=== PATIENT | male | born 1990 | race Caucasian/White ===

== ENCOUNTER 2016-09-04 06:07 | Emergency (ER) | payer OTHER ==
[~2016-09-04] VITALS: Ht 172.7 cm; Wt 78.1 kg
[2016-09-04 06:14] VITALS: TEMP 36.5; Ht 172.7 cm; Wt 78.1 kg
[2016-09-04] MEDS ORDERED: ONDANSETRON INJ 2 MG/ML 2 ML VIAL IV STA (06:31)
[2016-09-04] MEDS ORDERED: MULTI-VITAMIN INFUSION INJ 10 ML, THIAMINE HCL INJ 100 MG, FoLIC ACID INJ 1 MG in SODIU... IV STA (06:31)
--- NOTE | 2016-09-04 07:01 | EMERGENCY ROOM VISIT NOTE ---
History First contact with patient: 06:16 Chief Complaint: NAUSEA Stated Complaint: GETTING COLD,DIORDER OF DIGESTIVE Nursing Triage Summary: pt states "I cannot feel my organs". when asked to explain. pt states he only slept 5 minutes and he woke "sweating". pt reports bowel and bladder function normal. pt denies constipation or diarrhea. pt states he ate rice and chicken last evening for supper "I ate alot and feel pressure" pt then demonstrates he put his fingers down his throat to make himself vomit after eating. pt states he was thirsty all night, but did not drink. History of Present Illness The patient is a 25 year old male who presents to the Emergency Room with complaints of nausea and vomiting since this morning. History was somewhat limited as his primary language is Sinhala. He reports he woke up after sleeping for 5 minutes in a sweat and also felt nauseous, so went to the bathroom to make himself vomit. He vomited up his dinner, which was chicken and rice, and reports he had eaten a large amount of this last night. He reports he ate so much he found it somewhat difficult to breathe. He reports feeling chills, did not check his temperature, but then decided to come to the ED. He denies any diarrhea at any point. He reports he was drinking a lot Sunday night but was unable to quantify this. He reports he mainly drinks on the weekend and this will be higher amounts than throughout the week. He reports lately he has just been feeling thirsty but otherwise has been feeling well. Review of Systems See HPI for pertinent positives & negatives. A total of 10 systems reviewed and were otherwise negative. Past Medical/Surgical History Medical Problems: (1) Kidney stone Family History Patient reports no known family medical history. Social History Smoking Status: Current Every Day Smoker Alcohol Use: none Drug Use: none Occupation Status: [employer] student Current/Historical Medications No Active Prescriptions or Reported Meds Allergies Coded Allergies: No Known Allergies (Unverified , 09/04/16) Physical Exam Vital Signs Date Time Temp Pulse Resp B/P Pulse Ox O2 Delivery O2 Flow Rate FiO2 09/04/16 08:17 63 16 116/58 98 Room Air 09/04/16 06:14 36.5 63 20 114/77 98 Room Air Physical Exam GENERAL: Awake, alert, well-appearing, in no acute distress HENT: Normocephalic, atraumatic. Oropharynx unremarkable. EYES: Normal conjunctiva. Sclera non-icteric. NECK: Supple. No nuchal rigidity. FROM. No JVD. RESPIRATORY: Clear to auscultation. CARDIAC: Regular rate, normal rhythm. Extremities warm and well perfused. Pulses equal. ABDOMEN: Soft, non-distended. No tenderness to palpation. No rebound or guarding. No masses. RECTAL: Deferred. MUSCULOSKELETAL: Chest examination reveals no tenderness. The back is symmetrical on inspection without obvious abnormality. There is no CVA tenderness to palpation. No joint edema. LOWER EXTREMITIES: Calves are equal size bilaterally and non-tender. No edema. No discoloration. NEURO: Normal sensorium. No sensory or motor deficits noted. SKIN: No rash or jaundice noted. Medical Decision & Procedures Laboratory Results 09/04/16 06:50 Red Blood Count 4.76, Mean Corpuscular Volume 86.6, Mean Corpuscular Hemoglobin 31.1, Mean Corpuscular Hemoglobin Concent 35.9, Mean Platelet Volume 9.6, Neutrophils (%) (Auto) 50.0, Lymphocytes (%) (Auto) 33.5, Monocytes (%) (Auto) 7.6, Eosinophils (%) (Auto) 7.6, Basophils (%) (Auto) 0.9, Neutrophils # (Auto) 2.68, Lymphocytes # (Auto) 1.80, Monocytes # (Auto) 0.41, Eosinophils # (Auto) 0.41, Basophils # (Auto) 0.05 09/04/16 06:50 Test 09/04/16 06:50 09/04/16 06:57 White Blood Count 5.37 K/uL (4.8-10.8) Red Blood Count 4.76 M/uL (4.7-6.1) Hemoglobin 14.8 g/dL (14.0-18.0) Hematocrit 41.2 % (42-52) Mean Corpuscular Volume 86.6 fL (80-100) Mean Corpuscular Hemoglobin 31.1 pg (25-34) Mean Corpuscular Hemoglobin Concent 35.9 g/dl (32-36) Platelet Count 162 K/uL (130-400) Mean Platelet Volume 9.6 fL (7.4-10.4) Neutrophils (%) (Auto) 50.0 % Lymphocytes (%) (Auto) 33.5 % Monocytes (%) (Auto) 7.6 % Eosinophils (%) (Auto) 7.6 % Basophils (%) (Auto) 0.9 % Neutrophils # (Auto) 2.68 K/uL (1.4-6.5) Lymphocytes # (Auto) 1.80 K/uL (1.2-3.4) Monocytes # (Auto) 0.41 K/uL (0.11-0.59) Eosinophils # (Auto) 0.41 K/uL (0-0.5) Basophils # (Auto) 0.05 K/uL (0-0.2) RDW Standard Deviation 40.0 fL (36.4-46.3) RDW Coefficient of Variation 12.5 % (11.5-14.5) Immature Granulocyte % (Auto) 0.4 % Immature Granulocyte # (Auto) 0.02 K/uL (0.00-0.02) Anion Gap 9.0 mmol/L (3-11) Est Creatinine Clear Calc Drug Dose 99.3 ml/min Estimated GFR () 107.6 Estimated GFR (Non- 92.8 BUN/Creatinine Ratio 13.7 (10-20) Calcium Level 8.5 mg/dl (8.5-10.1) Total Bilirubin 0.7 mg/dl (0.2-1) Aspartate Amino Transf (AST/SGOT) 52 U/L (15-37) Alanine Aminotransferase (ALT/SGPT) 89 U/L (12-78) Alkaline Phosphatase 68 U/L (45-117) Total Protein 6.7 gm/dl (6.4-8.2) Albumin 3.8 gm/dl (3.4-5.0) Globulin 2.9 gm/dl (2.5-4.0) Albumin/Globulin Ratio 1.3 (0.9-2) Influenza Type A Antigen Neg for Influ A (NEG) Influenza Type B Antigen Neg for Influ B (NEG) Bedside Glucose 100 mg/dl (70-99) Medications Administered Medications (Trade) Dose Ordered Sig/Josias Route Start Time Stop Time Status Last Admin Dose Admin Ondansetron HCl 4 mg 4 mg NOW STAT IV 09/04/16 06:31 09/04/16 06:42 DC 09/04/16 07:05 4 MG Sodium Chloride (Nss 1000ml) 1,000 ml @ 999 mls/hr Q1H1M ONCE IV 09/04/16 07:15 09/04/16 08:15 DC 09/04/16 07:05 999 MLS/HR ED Course 6:20: I evaluated the patient in room B3B. A complete history and physical examination were performed. 6:30: I ordered a CBC, CMP, Urine dipstick, Urinalysis, Influenza antigen, 1L of Normal Saline x 1, and 4mg Zofran IV. 7:40: The patient reported feeling better, and wanted to go home. He was sent home in good condition. Medical Decision This is a 25-year-old male who presents with vomiting 1 day. Differential includes foodborne illness, viral gastroenteritis, cholecystitis, gastritis, pancreatitis. He had an IV placed and labs drawn. He was given 4 mg of IV Zofran for nausea and also rehydrated with 1 L normal saline. His labwork was found to be normal, apart from a mild elevation in his LFTs. I explained this could be a reflection of his alcohol use over the weekend. I informed him he should have this checked within the next week again by his PCP. He did not have any other signs of liver disease throughout his stay. He did not have any more nausea or vomiting during his time in the ED. He did request to go home around 8:30, and was discharged in good condition. Impression Primary Impression: Vomiting Departure Information Dispostion Home / Self-Care Condition GOOD Prescriptions No Active Prescriptions or Reported Meds Referrals No Doctor, Assigned (PCP) Patient Instructions My [facility] Resident Tracking Resident Involvement: Resident Care Provided Care Provided: Adult ED
[2016-09-04 07:02] LABS: BASO % 0.9 %; BASO ABS # 0.05 K/uL (0-0.2); COMPLETE YES; EOS % 7.6 %; HEMATOCRIT 41.2 % (42-52); IG% 0.4 %; LYMPH % 33.5 %; MEAN CELL VOLUME 86.6 fL (80-100); MEAN CORPUSCULAR HEMOGLOBIN 31.1 pg (25-34); MEAN CORPUSCULAR HGB CONC 35.9 g/dl (32-36); MEAN PLATELET VOLUME 9.6 fL (7.4-10.4); MONO % 7.6 %; PLATELET COUNT 162 K/uL (130-400); RED BLOOD COUNT 4.76 M/uL (4.7-6.1); WHITE BLOOD COUNT 5.37 K/uL (4.8-10.8)
[2016-09-04] MEDS ORDERED: SODIUM CHLORIDE 0.9% 1000ML 1,000 ML IV ONE (07:15)
[2016-09-04 07:21] LABS: BUN/CREATININE RATIO 13.7 (10-20); CALCIUM 8.5 mg/dl (8.5-10.1); CREATININE 1.1 mg/dl (0.60-1.40); POTASSIUM 3.9 mmol/L (3.5-5.1)
[2016-09-04 07:23] LABS: ALB/GLOB RATIO 1.3 (0.9-2)
[2016-09-04 08:17] VITALS: BP 116/58; PULSE 63; O2SAT 98
--- NOTE | 2016-09-04 08:38 | EMERGENCY ROOM VISIT NOTE ---
ED Visit Note First contact with patient: 06:16 Resident Physician Supervision Note: I interviewed and examined the patient. Discussed with Dr. Alonso and agree with findings and plan as documented in the note. Any exceptions or clarifications are listed here: [None] Documented By: Ramirez Eli
[2016-11-14] MEDS ORDERED: DEXT1CAP36 PO (06:53)
== END 2016-09-04 08:45 | disposition home or self-care (01) ==
LOC: C.EDB 06:11
DX: R11.2 Nausea with vomiting, unspecified (principal); Z87.442 Personal history of urinary calculi; F17.210 Nicotine dependence, cigarettes, uncomplicated; R79.89 Other specified abnormal findings of blood chemistry

== ENCOUNTER 2016-11-14 06:01 | Emergency (ER) | payer OTHER ==
[~2016-11-14] VITALS: Ht 185.4 cm; Wt 77.7 kg
[2016-11-14 06:03] VITALS: Ht 185.4 cm; Wt 77.7 kg
[2016-11-14 06:18] VITALS: TEMP 36.7
[2016-11-14] MEDS ORDERED: DEXT-233 PO (06:53)
[2016-11-14 07:14] LABS: BASO % 0.5 %; BASO ABS # 0.04 K/uL (0-0.2); COMPLETE YES; EOS % 10.1 %; HEMATOCRIT 44.6 % (42-52); IG% 0.3 %; LYMPH % 32.3 %; LYMPH ABS # 2.36 K/uL (1.2-3.4); MEAN CELL VOLUME 88.7 fL (80-100); MEAN CORPUSCULAR HEMOGLOBIN 31.2 pg (25-34); MEAN CORPUSCULAR HGB CONC 35.2 g/dl (32-36); MEAN PLATELET VOLUME 9.7 fL (7.4-10.4); MONO % 7.9 %; NEUT % 48.9 %; PLATELET COUNT 189 K/uL (130-400); RED BLOOD COUNT 5.03 M/uL (4.7-6.1)
--- NOTE | 2016-11-14 07:23 | EMERGENCY ROOM VISIT NOTE ---
History Report prepared by Best: Miracle Coleman Under the Supervision of: Dr. Julio Zafar D.O. First contact with patient: 06:31 Chief Complaint: ILLNESS Stated Complaint: FEVER AND HEADACHE History of Present Illness The patient is a 26 year old male who presents to the Emergency Room with complaints of a persistent illness that started around 4.5 hours ago. The patient states that he drank one shot of vodka along with 4-5 mixed drinks last night. After drinking, he jumped into an outdoor pool because his friends challenged him to do so. When he got out of the pool, he states that he sneezed 4 times and then got chills. The patient states that when he went back home he felt hot, like he had a fever, so he took one DayQuil pill. He states that he was still unable to sleep, so he was concerned that he needed to be evaluated. The patient is also experiencing a headache that started about 2 hours ago. He states that the headache is consistent with previous headaches that he has experienced when he is hungover after drinking. He denies ear pain, cough, rhinorrhea, sore throat, neck pain, pain or burning with urination, and testicular pain. The patient states that he felt fine yesterday with the exception of abdominal pain. He states that he has been experiencing abdominal pain for the past 2 days and it is worse when he eats normally. The patient states that he is not experiencing the abdominal pain today, but he adds that he has not been eating as much as he normally does. He states that his last bowel movement was yesterday and it was normal. The patient's shots are not up to date. He is from [place] and is in the area taking a class to learn how to speak Hebrew. The patient denies any significant past medical problems. Source of History: patient Onset: 4.5 hours ago Position: other (global) Quality: other (illness) Timing: other (persistent) Associated Symptoms: + abdominal pain, + chills, + fevers, + headache, No cough, No neck pain, No sorethroat, No urinary symptoms (pain or burning with urination) Note: no ear pain, no rhinorrhea, no testicular pain Review of Systems See HPI for pertinent positives & negatives. A total of 10 systems reviewed and were otherwise negative. Past Medical & Surgical Medical Problems: (1) Kidney stone Family History Patient reports no known family medical history. Social History Smoking Status: Current Every Day Smoker Alcohol Use: none Drug Use: none Occupation Status: [employer] student Current/Historical Medications Scheduled PRN Dextromethorphan-Phenylephrine (Day Time Multi-Symptom Co), 1 CAP PO DAILY PRN for COLD SX Allergies Coded Allergies: No Known Allergies (Unverified , 11/14/16) Physical Exam Vital Signs Date Time Temp Pulse Resp B/P Pulse Ox O2 Delivery O2 Flow Rate FiO2 11/14/16 08:34 86 20 118/69 100 11/14/16 06:18 36.7 94 18 123/78 98 Room Air 11/14/16 06:03 36.7 111 20 118/76 97 Room Air Physical Exam GENERAL: alert, sitting up in bed, well appearing, well nourished, anxious, no distress, non-toxic EYE EXAM: conjunctiva injected EARS: TMs clear bilaterally OROPHARYNX: no exudate, no erythema, lips, buccal mucosa, and tongue normal and mucous membranes are moist NECK: supple, no nuchal rigidity, no adenopathy, non-tender, negative Brudzinski LUNGS: Clear to auscultation. Normal chest wall mechanics HEART: no murmurs, S1 normal and S2 normal ABDOMEN: abdomen soft, non-tender, normo-active bowel sounds, no masses, no rebound or guarding. BACK: Back is symmetrical on inspection and there is no deformity, no midline tenderness, no CVA tenderness. : Normal external genitalia, circumcised penis. SKIN: no rashes and no bruising UPPER EXTREMITIES: upper extremities are grossly normal. LOWER EXTREMITIES: No pitting edema. NEURO EXAM: Normal sensorium, cranial nerves II-XII grossly intact, normal speech, no gross weakness of arms, no gross weakness of legs. Medical Decision & Procedures Laboratory Results 11/14/16 07:00 Red Blood Count 5.03, Mean Corpuscular Volume 88.7, Mean Corpuscular Hemoglobin 31.2, Mean Corpuscular Hemoglobin Concent 35.2, Mean Platelet Volume 9.7, Neutrophils (%) (Auto) 48.9, Lymphocytes (%) (Auto) 32.3, Monocytes (%) (Auto) 7.9, Eosinophils (%) (Auto) 10.1, Basophils (%) (Auto) 0.5, Neutrophils # (Auto ) 3.56, Lymphocytes # (Auto) 2.36, Monocytes # (Auto) 0.58, Eosinophils # (Auto ) 0.74, Basophils # (Auto) 0.04 11/14/16 07:00 Test 11/14/16 07:00 11/14/16 07:12 White Blood Count 7.30 K/uL (4.8-10.8) Red Blood Count 5.03 M/uL (4.7-6.1) Hemoglobin 15.7 g/dL (14.0-18.0) Hematocrit 44.6 % (42-52) Mean Corpuscular Volume 88.7 fL (80-100) Mean Corpuscular Hemoglobin 31.2 pg (25-34) Mean Corpuscular Hemoglobin Concent 35.2 g/dl (32-36) Platelet Count 189 K/uL (130-400) Mean Platelet Volume 9.7 fL (7.4-10.4) Neutrophils (%) (Auto) 48.9 % Lymphocytes (%) (Auto) 32.3 % Monocytes (%) (Auto) 7.9 % Eosinophils (%) (Auto) 10.1 % Basophils (%) (Auto) 0.5 % Neutrophils # (Auto) 3.56 K/uL (1.4-6.5) Lymphocytes # (Auto) 2.36 K/uL (1.2-3.4) Monocytes # (Auto) 0.58 K/uL (0.11-0.59) Eosinophils # (Auto) 0.74 K/uL (0-0.5) Basophils # (Auto) 0.04 K/uL (0-0.2) RDW Standard Deviation 39.8 fL (36.4-46.3) RDW Coefficient of Variation 12.4 % (11.5-14.5) Immature Granulocyte % (Auto) 0.3 % Immature Granulocyte # (Auto) 0.02 K/uL (0.00-0.02) Anion Gap 11.0 mmol/L (3-11) Est Creatinine Clear Calc Drug Dose 128.2 ml/min Estimated GFR () 125.9 Estimated GFR (Non- 108.7 BUN/Creatinine Ratio 16.8 (10-20) Calcium Level 8.5 mg/dl (8.5-10.1) Total Bilirubin 0.6 mg/dl (0.2-1) Direct Bilirubin 0.1 mg/dl (0-0.2) Aspartate Amino Transf (AST/SGOT) 25 U/L (15-37) Alanine Aminotransferase (ALT/SGPT) 42 U/L (12-78) Alkaline Phosphatase 63 U/L (45-117) Total Protein 7.1 gm/dl (6.4-8.2) Albumin 3.9 gm/dl (3.4-5.0) Lipase 148 U/L (73-393) Ethyl Alcohol mg/dL 61.0 mg/dl (0-3) Urine Color YELLOW Urine Appearance CLOUDY (CLEAR) Urine pH 5.0 (4.5-7.5) Urine Specific [place] 1.033 (1.000-1.030) Urine Protein NEG (NEG) Urine Glucose (UA) NEG (NEG) Urine Ketones 1+ (NEG) Urine Occult Blood NEG (NEG) Urine Nitrite NEG (NEG) Urine Bilirubin NEG (NEG) Urine Urobilinogen NEG (NEG) Urine Leukocyte Esterase NEG (NEG) Urine WBC (Auto) 1-5 /hpf (0-5) Urine RBC (Auto) 0-4 /hpf (0-4) Urine Hyaline Casts (Auto) 1-5 /lpf (0-5) Urine Epithelial Cells (Auto) 5-10 /lpf (0-5) Urine Bacteria (Auto) NEG (NEG) Urine Crystals CALCIUM OXALATE (NONE Laboratory results per my review. ED Course ED COURSE: Vital signs were reviewed and showed tachycardia. The patients medical record was reviewed The above diagnostic studies were performed and reviewed. ED treatments and interventions as stated above. 0636: The patient was evaluated in room A4. A complete history and physical examination was performed. 0828: Upon reevaluation, the patient is doing well. His headache is gone and he is no longer experiencing chills. I discussed my findings with the patient and he understands and agrees with the treatment plan. Based on the patients age, coexisting illnesses, exam and lab findings the decision to treat as an outpatient was made. The patient remained stable while under my care. The patient appeared well at the time of discharge. Medical Decision Differential Diagnosis includes but is not limited to headache, tension headache , cluster headache, migraine, subarachnoid hemorrhage, meningitis, mass, central venous thrombus, concussion, trauma and epidural/subdural hemorrhage. Patient is a 26-year-old male who presents the ER following performing a day last night jumping into a pool. After this he felt extremely cold and sneezed 4 times. Following this he took DayQuil and came into the ER for further evaluation. Patient does note that he has mild headache that this feels like his typical headache that he has after a night of heavy drinking. He does feel weak throughout. No neck pain. No signs of meningitis or encephalitis on exam. Vitals are unremarkable. Based on his history I do feel his symptoms are secondary to being cold from driving the fall and being hung over. CBC along with his BMP, LFTs, bilirubin and lipase were normal. UA was remarkable for ketones which is consistent with him drinking last night and his alcohol 66. Upon reevaluation his headache and chills have completely resolved. He had no abdominal pain. No signs of meningitis or encephalitis on exam. No recorded fevers. Based on his symptoms and presentation he was discharged follow-up with his primary care doctor. Discussed with Pt concerning signs and symptoms to watch out for. Pt was instructed to follow up with their PCP and discussed with the patient their option to return to the ED at anytime for persistent or worsening symptoms. The appropriate anticipatory guidance and out- patient management, including indications for return to the emergency department , were explained at length to the patient and understood. Impression Primary Impression: Cephalgia Additional Impression: Alcohol intoxication Scribe Attestation The scribe's documentation has been prepared under my direction and personally reviewed by me in its entirety. I confirm that the note above accurately reflects all work, treatment, procedures, and medical decision making performed by me. Departure Information Dispostion Home / Self-Care Referrals No Doctor, Assigned (PCP) Forms HOME CARE DOCUMENTATION FORM, IMPORTANT VISIT INFORMATION, WORK / SCHOOL INSTRUCTIONS Patient Instructions My [facility] Additional Instructions Please follow up with your primary care doctor or if you are a student [employer] with in the next 24 hours. Any worsening of your symptoms, please return to the ED immediately. This includes fevers greater than 100.4, stiff neck, confusion, recurrence of your abdominal pain, persistent nausea/vomiting, or any other concerning signs or symptoms from your standpoint. Problem Qualifiers Primary Impression: Cephalgia Headache type: unspecified Headache chronicity pattern: unspecified pattern Intractability: not intractable Qualified Codes: R51 - Headache Additional Impression: Alcohol intoxication Complication of substance-induced condition: uncomplicated Qualified Codes: F10.920 - Alcohol use, unspecified with intoxication, uncomplicated
[2016-11-14 07:49] LABS: URINE APPEARANCE CLOUDY (CLEAR); URINE BILIRUBIN NEG (NEG); URINE COLOR YELLOW; URINE NITRITE NEG (NEG); URINE SPECIFIC GRAVITY 1.033 (1.000-1.030); UROBILINOGEN NEG (NEG); ZZUR CULT IF INDIC CLEAN CATCH NO
[2016-11-14 07:51] LABS: MANUAL MICROSCOPIC REQUIRED? NO; REVIEW REQ? YES
[2016-11-14 08:01] LABS: BUN/CREATININE RATIO 16.8 (10-20); CALCIUM 8.5 mg/dl (8.5-10.1); CREATININE 0.96 mg/dl (0.60-1.40); POTASSIUM 4.1 mmol/L (3.5-5.1)
[2016-11-14 08:34] VITALS: BP 118/69; PULSE 86; O2SAT 100
== END 2016-11-14 08:39 | disposition home or self-care (01) ==
LOC: C.EDB 06:01 → C.EDA 08:39
DX: R51 Headache (principal); F10.120 Alcohol abuse with intoxication, uncomplicated; Y90.3 Blood alcohol level of 60-79 mg/100 ml; Z87.442 Personal history of urinary calculi; F17.210 Nicotine dependence, cigarettes, uncomplicated